=== PATIENT | male | born 1990 | race Two or more races ===

== ENCOUNTER 2023-06-10 06:48 | Emergency (ER) | payer OTHER ==
[~2023-06-10] VITALS: Ht 175.3 cm; Wt 132.9 kg
[2023-06-10 08:44] LABS: HEMATOCRIT 43.4 % (39.0-48.0); HEMOGLOBIN 13.9 g/dL (13-16.00); MEAN CORPUSCULAR HEMOGLOBIN 24.7 pg (27.00-32.0); PLATELET COUNT 251 K/uL (150-450); RED BLOOD COUNT 5.63 M/uL (4.00-6.00); RED CELL DISTRIBUTION WIDTH 15.7 % (11.5-14.5)
[2023-06-10 09:26] LABS: ALBUMIN 3.7 gm/dL (3.4-5.0); BILIRUBIN TOTAL 0.42 mg/dL (0.3-1.2); CALCIUM 9.1 mg/dL (8.5-10.1); CREATININE SERUM 0.97 mg/dL (0.70-1.30); GFR 89.13; GLOBULINA 3.8 G/DL (2.4-3.5); POTASSIUM 3.66 mEq/L (3.5-5.1); TOTAL PROTEIN 7.5 gm/dL (6.4-8.2)
== END 2023-06-10 20:42 | disposition home or self-care (01) ==
LOC: ER 06:48
DX: I10 Essential (primary) hypertension (principal)

== ENCOUNTER 2023-07-17 04:04 | Emergency (ER) | payer OTHER ==
[~2023-07-17] VITALS: Ht 172.7 cm; Wt 131.5 kg
[2023-07-17] MEDS ORDERED: AMLODIPINE BESYL5 MG (04:22)
[2023-07-17] MEDS ORDERED: LOSARTAN POTASS50 MG (04:22)
[2023-07-17] MEDS ORDERED: NIFE60TA3 PO (07:59)
== END 2023-07-17 08:01 ==
LOC: ER 04:04
DX: I10 Essential (primary) hypertension (principal); R51.9 Headache, unspecified; Z88.8 Allergy status to other drugs, medicaments and biological substances

== ENCOUNTER 2024-03-11 01:23 | Emergency (ER) | payer OTHER ==
[~2024-03-11] VITALS: Ht 172.7 cm; Wt 131.5 kg
[~2024-03-11 01:23] MED LIST: AMLODIPINE BESYL5 MG; LOSARTAN POTASS50 MG; NIFE60TA3 PO
[2024-03-11] MEDS ORDERED: NIFEDIPINE 10 MG CAPSULE PO STA (02:27)
[2024-03-11] MEDS ORDERED: KETOROLAC TROMETHAMINE 30 MG VIAL IV STA (02:27)
[2024-03-11] MEDS ORDERED: KETOROLAC TROMETHAMINE 30 MG VIAL ONE (02:34)
[2024-03-11] MEDS ORDERED: NIFEDIPINE 10 MG CAPSULE PO ONE (02:34)
[2024-03-11] MEDS ORDERED: TOPROL XL50 M1 PO ×2 (04:21→04:22)
[2024-03-11] MEDS ORDERED: MELOXICAM15 MG PO (04:23)
== END 2024-03-11 04:35 | disposition home or self-care (01) ==
LOC: ER 01:25
DX: I10 Essential (primary) hypertension (principal); Z88.8 Allergy status to other drugs, medicaments and biological substances; Z91.013 Allergy to seafood